=== PATIENT | male | born 1985 | race Caucasian/White ===

== ENCOUNTER 2016-09-02 12:51 | Emergency (ER) | payer SELFPAY ==
[2016-09-02] MEDS ORDERED: METHYLPRED SOD SUCC 125 MG/2 ML VIAL ONE (13:27)
[2016-09-02] MEDS ORDERED: CYCLOBENZAPRINE 10 MG TAB ONE (13:27)
[2016-09-02] MEDS ORDERED: KETOROLAC 60 MG/2 ML VIAL IM ONE (13:28)
== END 2016-09-02 14:00 | disposition home or self-care (01) ==
LOC: FASTR 12:51
DX: S39.012A Strain of muscle, fascia and tendon of lower back, initial encounter (principal); M51.16 Intervertebral disc disorders with radiculopathy, lumbar region; X50.0XXA Overexertion from strenuous movement or load, initial encounter
CPT/HCPCS: 96372